=== PATIENT | male | born 1990 | race Caucasian/White ===

== ENCOUNTER 2018-02-04 14:57 | Emergency (ER) | payer MEDICAID ==
[~2018-02-04] VITALS: Ht 185.4 cm; Wt 77.5 kg
[2018-02-04 15:12] VITALS: BP 111/67
[2018-02-04] MEDS ORDERED: CEPH500C5 PO (15:44)
== END 2018-02-04 15:53 | disposition home or self-care (01) ==
LOC: ER 14:58
DX: S61.214A Laceration without foreign body of right ring finger without damage to nail, initial encounter (principal); S61.210A Laceration without foreign body of right index finger without damage to nail, initial encounter; S61.212A Laceration without foreign body of right middle finger without damage to nail, initial encounter; F12.10 Cannabis abuse, uncomplicated; W25.XXXA Contact with sharp glass, initial encounter; Y93.89 Activity, other specified; Y92.89 Other specified places as the place of occurrence of the external cause; Y99.8 Other external cause status
CPT/HCPCS: 29130; 99283